=== PATIENT | male | born 1960 | race Caucasian/White ===

== ENCOUNTER 2018-01-22 08:51 | Inpatient (IN) | payer MEDICAID ==
[2018-01-22 08:51] VITALS: BMI 27.9
[2018-01-22] MEDS ORDERED: Sodium Chloride 0.9% 1,000 ML IV STA (09:18)
[2018-01-22 09:32] LABS: BASO % 1.2 % (0.0-2.0); EOS # 0.3 K/uL (0.0-0.7); EOS % 8.1 % (0.0-4.0); HEMOGLOBIN 15.5 g/dL (12.0-18.0); LYMPH # 1.9 K/uL (1.0-4.3); LYMPH % 45.8 % (20.0-40.0); MEAN CELL VOLUME 84.7 fL (80.0-94.0); MEAN CORPUSCULAR HEMOGLOBIN 29.8 pg (27.0-31.0); MEAN CORPUSCULAR HGB CONC 35.2 g/dL (33.0-37.0); MEAN PLATELET VOLUME 7.9 fL (7.2-11.7); MONO # 0.3 K/uL (0.0-0.8); MONO % 7.9 % (0.0-10.0); NEUT # 1.6 K/uL (1.8-7.0); NRBC % 0.2 % (0.0-2.0); RBC 5.21 Mil/uL (4.40-5.90); WHITE BLOOD COUNT 4.2 K/uL (4.8-10.8)
--- NOTE | 2018-01-22 09:35 | RAD ---
PROCEDURE: CHEST RADIOGRAPH, 1 VIEW HISTORY: Pre Op COMPARISON: None available. FINDINGS: LUNGS: Clear. PLEURA: No pneumothorax or pleural fluid seen. CARDIOVASCULAR: Normal. OSSEOUS STRUCTURES: No significant abnormalities. VISUALIZED UPPER ABDOMEN: Normal. OTHER FINDINGS: None. IMPRESSION: No active disease.
[2018-01-22 09:40] LABS: PROTHROMBIN TIME 11.4 SECONDS (9.7-12.2)
[2018-01-22 09:45] LABS: ALB/GLOB RATIO 1.3 (1.0-2.1); ALBUMIN 4.2 g/dL (3.5-5.0); ALT/SGPT 26 U/L (21-72); AST/SGOT 26 U/L (17-59); BLOOD UREA NITROGEN 17 mg/dL (9-20); GFR AFRICAN-AMERICAN > 60; GFR NON-AFRICAN AMERICAN > 60
--- NOTE | 2018-01-22 09:54 | C.PDOC ---
History Of Present Illness 57 y/o male with Hx Hernia was sent by PMD for evaluation. Patient complaints of left groin pain that began 2 weeks ago. Denies nausea or vomiting. Time Seen by Provider: 01/22/18 09:11 Chief Complaint (Nursing): Abdominal Pain History Per: Patient History/Exam Limitations: no limitations Onset/Duration Of Symptoms: Days Current Symptoms Are (Timing): Still Present Location Of Pain/Discomfort: LLQ Radiation Of Pain To:: None Quality Of Discomfort: "Pain" Associated Symptoms: denies: Fever, Chills, Nausea, Vomiting, Diarrhea Exacerbating Factors: None Alleviating Factors: None Last Bowel Movement: Today Recent travel outside of the [place]: No Past Medical History Reviewed: Historical Data, Nursing Documentation, Vital Signs Vital Signs: Last Vital Signs Temp 98.7 F 01/22/18 13:23 Pulse 57 L 01/22/18 14:45 Resp 11 L 01/22/18 14:45 BP 126/84 01/22/18 14:45 Pulse Ox 98 01/22/18 14:45 - Medical History PMH: No Chronic Diseases - [facility] Procedures CLOSURE SKIN & SUBCUTANEOUS NEC (03/25/07) TETANUS TOXOID ADMINIST (06/21/13) Family History: States: No Known Family Hx - Social History Hx Tobacco Use: No Hx Alcohol Use: No Hx Substance Use: No Review Of Systems Constitutional: Negative for: Fever, Chills Gastrointestinal: Positive for: Other (Left groin pain ). Negative for: Nausea , Vomiting, Diarrhea Skin: Negative for: Rash Neurological: Negative for: Weakness, Numbness Physical Exam - Physical Exam Appears: Non-toxic, No Acute Distress Skin: Warm, Dry, No Rash Head: Atraumatic, Normacephalic Eye(s): bilateral: Normal Inspection, PERRL, EOMI Oral Mucosa: Moist Neck: Supple Chest: Symmetrical, No Tenderness Cardiovascular: Rhythm Regular, No Murmur Respiratory: Normal Breath Sounds, No Decreased Breath Sounds, No Rales, No Rhonchi, No Wheezing Gastrointestinal/Abdominal: Soft, Hernia (left inguinal hernia, Tender to palpation; bulging) Extremity: Normal ROM, No Swelling Extremity: Bilateral: Atraumatic, Normal Color And Temperature, Normal ROM Neurological/Psych: Oriented x3, Normal Speech Gait: Steady ED Course And Treatment - Laboratory Results Result Diagrams: 01/22/18 09:27 01/22/18 09:27 O2 Sat by Pulse Oximetry: 98 (RA) Pulse Ox Interpretation: Normal Progress Note: Administered IV fluids. Ordered CXR, EKG, BBK, and urinalysis. Spoke with Dr. Mena, he requested to admit for incarcerated hernia for surgical repair. Disposition - Disposition Disposition: HOSPITALIZED Disposition Time: 09:53 Condition: STABLE - Clinical Impression Clinical Impression: Incarcerated inguinal hernia - PA / HUMAN SERVICE SPECIALIST / Resident Statement MD/DO has reviewed & agrees with the documentation as recorded. - Scribe Statement The provider has reviewed the documentation as recorded by the Scribe Brian Sierra All medical record entries made by the Leighannibe were at my direction and personally dictated by me. I have reviewed the chart and agree that the record accurately reflects my personal performance of the history, physical exam, medical decision making, and the department course for this patient. I have also personally directed, reviewed, and agree with the discharge instructions and disposition. Decision To Admit - Pt Status Changed To: Hospital Disposition Of: Inpatient - Admit Certification Admit to Inpatient:: After my assessment, the patient will require hospitalization for at least two midnights. This is because of the severity of symptoms shown, intensity of services needed, and/or the medical risk in this patient being treated as an outpatient. - InPatient: Physician Admission Certification:: patient will need surgical treatment - . Bed Request Type: Regular Admitting Physician: Jason Mena Patient Diagnosis: Incarcerated inguinal hernia
[2018-01-22 11:33] LABS: SQUAMOUS EPITHIAL < 1 /hpf (0-5); URINE BACTERIA RARE (<OCC); URINE BILIRUBIN NEGATIVE (NEGATIVE); URINE BLOOD 1+ (NEGATIVE); URINE CLARITY Clear (Clear); URINE COLOR Yellow (YELLOW); URINE GLUCOSE (UA) NORMAL (Normal); URINE LEUKOCYTE ESTERASE NEG Leu/uL (Negative); URINE PROTEIN NEGATIVE (NEGATIVE); URINE UROBILINOGEN NORMAL mg/dL (0.2-1.0)
[2018-01-22] MEDS ORDERED: Propofol 10 mg/ml Inj (20 ML) ONE (12:10)
[2018-01-22] MEDS ORDERED: Succinylcholine Chloride 20 mg/ml Syr (5 ml) IV ONE (12:10)
[2018-01-22] MEDS ORDERED: Lidocaine Hydrochloride 0 ML INJ ONE (12:10)
[2018-01-22] MEDS ORDERED: Rocuronium 10 mg/ml (5 ml) ONE (12:10)
[2018-01-22] MEDS ORDERED: Midazolam 2 MG/2 ML VIAL ONE (12:10)
[2018-01-22] MEDS ORDERED: ceFAZolin 1 gm FROZEN Premix 2 GM/100 ML ML IVPB ONE (12:11)
[2018-01-22] MEDS ORDERED: Lidocaine Hydrochloride 5 ML INJ ONE (12:13)
[2018-01-22] MEDS: Bupivacaine HCl 0.25% PF (30 ml) Inj ONE ×2 (12:46→13:05)
[2018-01-22] MEDS ORDERED: Neostigmine Methylsulfate 3mg/3ml Syringe IV ONE (13:07)
[2018-01-22] MEDS ORDERED: Bacitracin 500 Units/gm Oint Foilpak UD ONE (13:07)
[2018-01-22] MEDS ORDERED: Oxycodone/Acetaminophen 5/325 mg Tab PO PRN (13:11)
[2018-01-22] MEDS: HYDROmorphone 0.5 mg/0.5 ml ISec IVP PRN ×4 (13:50→14:55)
[2018-01-22] MEDS ORDERED: ceFAZolin 1 gm in NS 1 GM/100 ML BAG IVPB SCH (14:30)
[2018-01-22] MEDS ORDERED: Lactated Ringer's 1,000 ML IV ONE (15:00)
[2018-01-22] MEDS: ceFAZolin 1 gm FROZEN Premix 1 GM/50 ML ML IVPB SCH (20:50)
[2018-01-22] MEDS: Lactated Ringer's 1,000 ML IV SCH (20:54)
[2018-01-22 23:32] VITALS: RESP 20; O2SAT 97
--- NOTE | 2018-01-23 01:04 | OP ---
PROCEDURE DATE: 01/22/2018 PREOPERATIVE DIAGNOSES: 1. Incarcerated left inguinal hernia. 2. Foreign body of the right hand. POSTOPERATIVE DIAGNOSES: 1. Incarcerated left inguinal hernia. 2. Foreign body of the right hand. PROCEDURE PERFORMED: 1. Repair of incarcerated left inguinal hernia. 2. Excision of large cord lipoma. 3. Removal of foreign body from the left hand. SURGEON: Jason Mena MD ANESTHESIA: General. BLOOD LOSS: 30 mL. POSTOPERATIVE CONDITION: Stable. INDICATIONS FOR SURGERY: This is a 57-year-old male who has had a hernia in his left groin for quite some time, it recently became more painful and "stuck." Sent to the ER today, he is now taken to the OR for urgent repair. Of note, the patient also has a foreign body (piece of string) which is hanging out of his right hand nearing the snuffbox. He apparently had a laceration repair 2 years ago and what appears to be an old suture had started to extrude from the area. Consent was also obtained for removal of this in addition to repair of his hernia. GROSS FINDINGS: There was an incarcerated indirect inguinal hernia. It contained small bowel and omentum. The foreign body in the right hand appeared to be an old Prolene suture with several knots in it which may have been a subcuticular suture which was removed at the end of the procedure. DESCRIPTION OF PROCEDURE: The patient was taken to the operating room, general anesthesia was administered, and the abdominal area was prepped and draped. Standard left inguinal incision was made. The external oblique aponeurosis was opened, and the spermatic cord was looped with a [place] drain. The large hernia sac and the contents within it were identified, and the sac was opened to facilitate reduction. As the small bowel was dissected free, a small serosal tear was noted and repaired with silk. Meanwhile after this had been reduced along with the sac, an extra large plug was inserted into the hernia defect and sutured in place with interrupted 2-0 Prolene. A large pelvic cord lipoma was identified and dissected free and removed. It was between 5 to 7 cm in size. Bleeding was controlled with the Bovie. The open wound was irrigated with copious amounts of saline solution and was closed in layers with Monocryl, subcutaneous Monocryl, and skin clips. Attention was then turned to the right hand. It was prepped and draped, and using a 11-blade, the area of was opened further with the 11-blade exposing the underlying suture beneath it. The suture was then dissected free, grasped with a clamp, and hold free of the wound. The wound was irrigated with saline and dressed open with bacitracin ointment and dressed sterilely. The patient tolerated the procedure well. Returned to recovery room in stable condition. Jason Mena MD
[2018-01-23] MEDS: Lactated Ringer's 1,000 ML IV SCH ×2 (04:09→09:40)
[2018-01-23] MEDS: ceFAZolin 1 gm FROZEN Premix 1 GM/50 ML ML IVPB SCH ×2 (04:11→13:21)
[2018-01-23 07:22] LABS: BASO % 0.6 % (0.0-2.0); EOS # 0.1 K/uL (0.0-0.7); HEMOGLOBIN 13.8 g/dL (12.0-18.0); LYMPH # 1.9 K/uL (1.0-4.3); LYMPH % 27.8 % (20.0-40.0); MEAN CELL VOLUME 84.9 fL (80.0-94.0); MEAN CORPUSCULAR HEMOGLOBIN 29.3 pg (27.0-31.0); MEAN CORPUSCULAR HGB CONC 34.5 g/dL (33.0-37.0); MEAN PLATELET VOLUME 8.2 fL (7.2-11.7); MONO # 0.6 K/uL (0.0-0.8); MONO % 8.6 % (0.0-10.0); NEUT # 4.2 K/uL (1.8-7.0); NRBC % 0.1 % (0.0-2.0); RBC 4.7 Mil/uL (4.40-5.90); RED CELL DISTRIBUTION WIDTH 13.2 % (11.5-14.5)
[2018-01-23 07:27] LABS: WHITE BLOOD COUNT 6.8 K/uL (4.8-10.8)
[2018-01-23 07:31] LABS: BLOOD UREA NITROGEN 15 mg/dL (9-20); CALCIUM 8.2 mg/dl (8.6-10.4); GFR AFRICAN-AMERICAN > 60; GFR NON-AFRICAN AMERICAN > 60
[2018-01-23 08:27] VITALS: BP 118/70; PULSE 76; TEMP 98.7
--- NOTE | 2018-01-25 05:58 | CARD ---
APPROVED REPORT EKG Measurement Heart [id number] <Conclusion> Normal sinus rhythm Normal ECG
== END 2018-01-23 15:47 | disposition home or self-care (01) | DRG 162 ==
LOC: C.ER 08:51 → C.9E 09:52 → C.9S 12:06 → C.5S 18:10
PROVIDERS: ADMIT Surgery; ATTEND Surgery
PROC: 0JCJ0ZZ Extirpation of Matter from Right Hand Subcutaneous Tissue and Fascia, Open Approach (ICD-10-PCS; 2018-01-22)
PROC: 0YQ60ZZ Repair Left Inguinal Region, Open Approach (ICD-10-PCS; principal; 2018-01-22 12:30)
PROC: 0VBG0ZZ Excision of Left Spermatic Cord, Open Approach (ICD-10-PCS; 2018-01-22 12:30)
DX: K40.30 Unilateral inguinal hernia, with obstruction, without gangrene, not specified as recurrent (principal); D17.6 Benign lipomatous neoplasm of spermatic cord; M79.5 Residual foreign body in soft tissue